=== PATIENT | male | born 1975 | race Caucasian/White ===

== ENCOUNTER 2023-01-23 18:35 | Emergency (ER) | payer SELFPAY ==
[~2023-01-23] VITALS: Ht 170.2 cm; Wt 61.0 kg
[2023-01-23 18:41] VITALS: O2SAT 95
[2023-01-23 19:16] LABS: BASOPHILS % 1.2 % (0.0-2.0); HEMATOCRIT. 36.4 % (42.0-52.0); HEMOGLOBIN. 12.7 g/dL (14.0-18.0); MEAN CORPUSCULAR HEMOGLOBIN 33.8 pg (28.0-32.0); MEAN CORPUSCULAR VOLUME 97.2 fL (80.0-94.0); MEAN PLATELET VOLUME 7.3 fl (7.4-10.4); MONOCYTES % 10.7 % (2.0-8.0); NEUTROPHILS % 45.1 % (40.0-76.0); PLATELET 135 x1000/uL (130-400); RED BLOOD CELL COUNT 3.75 mill/uL (4.7-6.1); RED CELL DISTRIBUTION WIDTH 14.5 % (11.6-14.6)
[2023-01-23 19:22] LABS: CHLORIDE 111 mEq/L (98-107)
[2023-01-23 21:40] VITALS: BP 114/79; PULSE 86; RESP 15; TEMP 98.2
== END 2023-01-23 22:28 | disposition home or self-care (01) ==
LOC: ER 18:35
DX: R00.2 Palpitations (principal); R07.89 Other chest pain; I10 Essential (primary) hypertension
CPT/HCPCS: 36415; 71045; 80053; 84484; 85025; 93005; 99285